=== PATIENT | female | born 1990 | race Caucasian/White ===

== ENCOUNTER 2018-05-26 13:00 | Outpatient (CLI) | payer MEDICAID ==
--- NOTE | 2018-05-26 17:39 | ULT ---
ULTRASOUND OBSTETRICAL COMPLETE: DATE: 05/26/18. HISTORY: A 27-year-old female with no care. Z34.90, normal . FINDINGS: number: Reina. lie: Vertex. Maternal cervix: Obscured. Placenta: Anterior. No placenta previa. Amniotic fluid volume: BLAZE = 10 cm. heart rate: 130 b.p.m. The following anatomy is visualized, with no evidence of anomalies: Head, cerebellum, cisterna magna, 4-chamber heart, stomach, kidneys, bladder, spine, upper extremitie s, lower extremities, and 3-vessel cord. The lateral ventricles, cord insertion, and nose and lips, are not well visualized. biometry: Head circumference (HC): 26.8 cm 29 w 2 d Biparietal diameter (BPD): 7.5 cm 29 w 6 d Abdominal circumference (AC): 24.2 cm 28 w 3 d Femur length (FL): 5.6 cm 29 w 4 d Average ultrasound age (AUA): 29 w 2 d Estimated date of delivery (SAJI): 08/10/2018. Last menstrual period (LMP): 11/24/2017. Gestational age by LMP: 26 w 1 d. Estimated weight (EFW): 1,316 g +/- 195 g (2 lb, 14 oz +/- 7 oz). IMPRESSION: 1. Live 3rd trimester intrauterine gestation. 2. Estimated gestational age of 29 weeks, 1 day. 3. Cephalic lie. IAN [place] POS: [facility]
== END 2018-05-26 13:01 | disposition home or self-care (01) ==
LOC: SCSULT 13:00
PROVIDERS: ATTEND Family Medicine
DX: Z34.93 Encounter for supervision of normal pregnancy, unspecified, third trimester (principal); Z3A.29 29 weeks gestation of pregnancy
CPT/HCPCS: 36415; 76805; 82950; 84443; 85025; 86762; 86780; 86850; 86900; 86901; 87340; 87389; 87480; 87491; 87510; 87591; 87660; 88142; G0123

== ENCOUNTER 2018-08-03 05:30 | Inpatient (IN) | payer OTHER ==
[2018-08-03] MEDS ORDERED: Methylergonovine 0.2 MG/ML VIAL IM PRN (08:18)
[2018-08-03] MEDS ORDERED: NS / Oxytocin 40 units/1000ml 1,000 ML IV PRN (08:18)
[2018-08-03] MEDS ORDERED: Misoprostol 200 MCG TAB PR PRN (08:18)
[2018-08-03] MEDS ORDERED: Meperidine HCl/PF 25 MG/ML VIAL IM/IV PRN (08:18)
[2018-08-03] MEDS ORDERED: Ibuprofen 800 MG TAB PO PRN (08:18)
[2018-08-03] MEDS ORDERED: Butorphanol Tartrate 1 MG/ML VIAL SLOW IVP PRN (08:18)
[2018-08-03] MEDS ORDERED: Lidocaine 1% (PF) 30 ML VIAL SC PRN (08:18)
[2018-08-03] MEDS ORDERED: HYDROcodone/Acetaminophen 5/325 mg Tablet PO PRN (08:18)
[2018-08-03] MEDS ORDERED: Promethazine HCl 25 MG/ML VIAL IM PRN ×2 (08:18→13:40)
[2018-08-03] MEDS ORDERED: Carboprost 250 MCG/ML AMP IM PRN (08:18)
[2018-08-03] MEDS ORDERED: Ondansetron PF 4 MG/2 ML Vial IVP PRN ×2 (08:18→13:40)
[2018-08-03] MEDS ORDERED: Acetaminophen 500 MG TAB PO PRN (08:18)
[2018-08-03] MEDS: Lactated Ringer's 1,000 ML IV PRN ×3 (08:20→15:45)
[2018-08-03] MEDS ORDERED: NS w/ Oxytocin 10 units 500 ML IV SCH (08:30)
[2018-08-03 08:59] LABS: Hemoglobin 9.6 g/dL (12.0-16.0); Mean Corpuscular HGB CONC 32.5 g/dL (32.0-36.0); Mean Corpuscular Hemoglobin 25.8 pg (27.0-31.0); Mean Corpuscular Volume 79.6 fL (78.0-98.0); Mean Platelet Volume 9.2 fL (7.4-10.4); Platelet Count 186 thou/uL (130-400); RBC Distribution Width 13.1 % (11.5-14.5); White Blood Cell (WBC) Count 7.4 thou/uL (4.8-10.8)
[2018-08-03 09:19] VITALS: BMI 33.8
[2018-08-03 09:25] LABS: HBSAg Index 0.21 S/CO (0-0.99); Hep B Surf Ag Non-Reactive S/CO (NonReactive); Syphilis Antibody Nonreactive (Nonreactive); Syphilis Antibody Index 0.03 S/CO (<1.00 Non-Reactive)
[2018-08-03] MEDS ORDERED: NS w/ Oxytocin 10 units 500 ML ONE (09:28)
[2018-08-03 10:34] LABS: Amphetamine Not Detected (NotDetected); Barbiturates Screen Not Detected (NotDetected); Benzodiazepine Screen Not Detected (NotDetected); Cocaine Metabolite Screen Not Detected (NotDetected); Medtox Control Line Valid? VALID (VALID); Medtox Reader # READER 4; Methadone Not Detected (NotDetected); Methamphetamine Not Detected (NotDetected); Opiate Screen Not Detected (NotDetected); Oxycodone Screen Not Detected (NotDetected); Phencyclidine (PCP) Not Detected (NotDetected); THC/Cannabinoid Screen Not Detected (NotDetected); Tricyclic Screen Not Detected (NotDetected)
[2018-08-03] MEDS ORDERED: Dextrose 5%-Lactated Ringers 1,000 ML IV PRN (10:36)
[2018-08-03] MEDS ORDERED: CEFAZOLIN 2 GM/50 ML BAG ONE (12:27)
[2018-08-03] MEDS ORDERED: CEFAZOLIN 2 GM/50 ML BAG IVPB SCH (12:30)
[2018-08-03] MEDS ORDERED: Bicitra 30 ML UDCUP PO SCH (12:30)
[2018-08-03] MEDS ORDERED: Morphine PF 1 MG/ML SYR ONE (12:47)
[2018-08-03] MEDS ORDERED: Oxytocin 10 UNITS/ML VIAL ONE (12:48)
[2018-08-03] MEDS ORDERED: ePHEDrine/0.9% NaCl/PF SYRINGE 50 mg/10 ml ONE (12:48)
[2018-08-03] MEDS ORDERED: Ondansetron PF 4 MG/2 ML Vial ONE ×2 (12:48→14:12)
[2018-08-03] MEDS ORDERED: Azithromycin 500 MG in Sodium Chloride 0.9% 250 ML 250 ML IVPB SCH (13:00)
[2018-08-03] MEDS ORDERED: PHENYLEPHRINE-NS 100 MCG/ML 10 ML SYRINGE ONE (13:17)
--- NOTE | 2018-08-03 13:24 | ULT ---
ULTRASOUND BIOPHYSICAL PROFILE: Date: 08/03/18 HISTORY: 27-year-old female in third trimester of gestation with nonreactive non-stress test. FINDINGS: breathin tone: 2 movement: 2 Amniotic fluid volume: 2 lie: Cephalic. BLAZE: 10.5 cm heart rate: 121 bpm IMPRESSION: Normal biophysical profile score of 8/8, excluding the non-stress test. jn [] POS: [facility]
[2018-08-03] MEDS ORDERED: L&D-Morphine 4 MG/ML VIAL SLOW IVP PRN (13:40)
[2018-08-03] MEDS ORDERED: Meperidine HCl/PF 25 MG/ML VIAL SLOW IVP PRN (13:40)
[2018-08-03] MEDS ORDERED: Naloxone HCl 0.4 mg/ml Vial IVP PRN ×2 (13:40)
[2018-08-03] MEDS ORDERED: Promethazine HCl 25 MG SUPP PR PRN (13:40)
[2018-08-03] MEDS ORDERED: Ondansetron HCl/PF 4 MG/2 ML Vial IVP PRN (13:40)
[2018-08-03] MEDS ORDERED: HYDROmorphone 2 MG/ML VIAL SLOW IVP PRN (13:40)
[2018-08-03] MEDS ORDERED: diphenhydrAMINE 50 MG/ML VIAL IVP PRN (13:40)
[2018-08-03] MEDS ORDERED: Eucerin (Mineral Oil/Petrolatum,White) 30 gm Jar TOP PRN (13:40)
[2018-08-03] MEDS ORDERED: Naloxone HCl 0.4 mg/ml Vial IV PRN (13:40)
[2018-08-03] MEDS ORDERED: Communication Order-Pharmacy FS SCH (13:45)
[2018-08-03] MEDS ORDERED: Ketorolac Tromethamine 30 MG/ML VIAL IVP SCH (13:45)
[2018-08-03] MEDS ORDERED: Ketorolac Tromethamine 30 MG/ML VIAL ONE (14:38)
[2018-08-03] MEDS ORDERED: Meperidine HCl/PF 25 MG/ML VIAL ONE (15:08)
[2018-08-03 15:41] LABS: Actual Bicarbonate (HCO3a) 27.7 mEq/L (22-28); Analyzer IN Cardio OR; Base Excess (BEa) -1.9 mEq/L (-2.0 to +3.0)
[2018-08-03] MEDS ORDERED: Lanolin Ointment 7 GM TUBE TOP PRN (16:27)
[2018-08-03] MEDS ORDERED: Adacel (T-DAP) 0.5 ML SYRINGE IM ONE (16:27)
--- NOTE | 2018-08-03 16:40 | HP ---
HISTORY OF PRESENT ILLNESS: This is a 27-year-old white female with G4, P3 at 40 weeks and 3 days. The patient was admitted for an elective induction. However, throughout the night, the baby had minimal variability. She has remained at approximately 2 cm. She has been layla every 2 to 3 minutes mildly. The patient's membranes were also ruptured approximately 30 minutes ago and the baby's status has been unchanged. Cervix remains at 2 to 3 cm 50% high with minimal variability. PAST MEDICAL HISTORY: Unremarkable. PAST SURGICAL HISTORY: Spontaneous vaginal deliveries x3. MEDICATIONS: vitamins and iron. ALLERGIES: NONE. FAMILY HISTORY: Unremarkable. SOCIAL HISTORY: She is a single mother with 3 children. Father of the baby is present. She does not smoke, does not drink. REVIEW OF SYSTEMS: As above. PHYSICAL EXAMINATION: VITAL SIGNS: Stable, afebrile. HEART: Regular rate and rhythm without murmur. LUNGS: Clear. ABDOMEN: Soft, gravid. Contractions every 2 to 3 minutes, mild. Cervix 2 to 3 cm 50% high. clear. EXTREMITIES: No edema. LABORATORY DATA: One-hour GCT normal. Hepatitis B negative. HIV negative. UA negative. Rubella immune, GBS negative. RPR negative. Thyroid normal. O+ blood type. H and H 9.6 and 29.4. ASSESSMENT: 1. Non-reassuring heart racing. 2. A 40-week and 3-day intrauterine . 3. Three prior normal vaginal deliveries. 4. Anemia. PLAN: 1. Routine L and D orders. 2. Routine preop orders. 3. Ancef and Zithromax IV. 4. Discussed the situation with mother and with grandmother. Job ID: [id number]
[2018-08-03] MEDS ORDERED: Morphine 2 MG/ML SYRINGE SLOW IVP PRN (18:39)
[2018-08-03] MEDS: Ketorolac Tromethamine 30 MG/ML VIAL IVP PRN (22:48)
[2018-08-04] MEDS ORDERED: Butorphanol Tartrate 1 MG/ML VIAL SLOW IVP PRN (01:45)
[2018-08-04] MEDS ORDERED: HYDROcodone/Acetaminophen 5/325 mg Tablet PO PRN (01:45)
[2018-08-04] MEDS: Ketorolac Tromethamine 30 MG/ML VIAL IVP PRN (05:42)
[2018-08-04 06:24] LABS: Hemoglobin 8.1 g/dL (12.0-16.0); Mean Corpuscular HGB CONC 31.9 g/dL (32.0-36.0); Mean Corpuscular Hemoglobin 25.6 pg (27.0-31.0); Mean Corpuscular Volume 80.3 fL (78.0-98.0); Mean Platelet Volume 9.2 fL (7.4-10.4); Platelet Count 145 thou/uL (130-400); RBC Distribution Width 13.1 % (11.5-14.5); Red Blood Cell (RBC) Count 3.15 mill/uL (4.20-5.40); White Blood Cell (WBC) Count 8.4 thou/uL (4.8-10.8)
--- NOTE | 2018-08-04 07:35 | OP ---
DATE OF PROCEDURE: 08/03/2018 PREOPERATIVE DIAGNOSES: 1. Term . 2. Non-reassuring heart tracings. POSTOPERATIVE DIAGNOSES: 1. Term . 2. Non-reassuring heart tracings. 3. Possible occult cord. PROCEDURE PERFORMED: Primary low-transverse section. ANESTHESIA: Spinal. ASSISTANTS: 1. Dr. Abena Fernandez. 2. Dr. Genet Wen. ESTIMATED BLOOD LOSS: Approximately 700 mL. DESCRIPTION OF PROCEDURE: This is a 27-year-old white female G4, P3, taken to the operating room, placed in the supine position. Abdomen was prepped and draped sterilely. A Pfannenstiel incision was made. Subcu was dissected down to the fascia. The fascia was opened without incident. The peritoneum was opened by blunt dissection. Bladder flap was dissected inferiorly. A low-transverse uterine incision was made. Fluid was noted to be clear. Delivered the baby with use of a vacuum vertex presentation. The patient did cry upon delivery. Cord gases were obtained. Cord was clamped. [facility]ady team was was present. I closed the uterus in one layer with #1 Monocryl. The abdomen was evacuated of all clots. Hemostasis was adequate. The peritoneum was closed with 2-0 chromic, the fascia with 0 Vicryl and the skin was closed with yee. The mother and baby did well. Job ID: [id number]
[2018-08-04] MEDS: Prenatal Vitamin 1 TAB PO SCH (09:06)
--- NOTE | 2018-08-04 15:30 | PDOC.PP ---
Post Progress Note Post Day #: 1 Subjective: me pain but manageable with medication, baby still in NICU PO intake tolerated: yes Flatus: yes Ambulation: yes Vital Signs (12 hours) Temp Pulse Resp BP Pulse Ox 08/04/18 14:58 98.2 F 80 12 95/51 L 97 08/04/18 08:00 98.1 F 83 20 92/50 L 97 08/04/18 07:45 97 08/04/18 04:30 98.3 F 82 16 98/51 L Weight Weight 185 lb - Physical Examination General: NAD Cardiovascular: no m/r/g, RRR Respiratory: clear to auscultation bilaterally, non-labored breathing Abdominal: + bowel sounds, lochia, no distention, appropriately TTP Skin: CS incision dry & intact, no rash Result Diagrams: 08/04/18 05:50 Additional Labs: Post Labs Blood Type O POSITIVE 08/03/18 08:31 Hep Bs Antigen Non-Reactive S/CO (NonReactive) 08/03/18 08:31 (1) delivery, delivered, current hospitalization Code(s): O82 - ENCOUNTER FOR DELIVERY WITHOUT INDICATION Status: Acute - Assessment/Plan Routine post-op care Ambulate Start breast pump for baby in NICU Home in 1-2 days
[2018-08-04] MEDS: HYDROcodone/Acetaminophen 5/325 mg Tablet PO PRN ×2 (16:20→21:09)
[2018-08-05] MEDS: HYDROcodone/Acetaminophen 5/325 mg Tablet PO PRN ×4 (05:31→18:36)
[2018-08-05] MEDS: Prenatal Vitamin 1 TAB PO SCH (09:59)
--- NOTE | 2018-08-05 13:02 | PDOC.PP ---
Post Progress Note Post Day #: 2 Subjective: No c/o. Pumping with good colostrum. PO intake tolerated: yes Flatus: yes Ambulation: yes Vital Signs (12 hours) Temp Pulse Resp BP Pulse Ox 08/05/18 12:02 99.2 F 101 H 20 110/61 08/05/18 08:20 98 08/05/18 07:51 98.8 F 73 20 103/56 L 98 08/05/18 05:20 99.0 F 80 16 103/54 L Weight Weight 185 lb - Physical Examination General: NAD Cardiovascular: no m/r/g, RRR Respiratory: clear to auscultation bilaterally, non-labored breathing Abdominal: + bowel sounds, lochia, no distention, appropriately TTP Skin: CS incision dry & intact, no rash Result Diagrams: 08/04/18 05:50 Additional Labs: Post Labs Blood Type O POSITIVE 08/03/18 08:31 Hep Bs Antigen Non-Reactive S/CO (NonReactive) 08/03/18 08:31 (1) delivery, delivered, current hospitalization Code(s): O82 - ENCOUNTER FOR DELIVERY WITHOUT INDICATION Status: Acute - Assessment/Plan No c/o. Work on breast pumping. Baby still in NICU.
[2018-08-05] MEDS: Ibuprofen 800 MG TAB PO PRN (14:12)
[2018-08-05] MEDS: Ferrous Sulfate 325 MG TAB PO SCH (16:59)
[2018-08-06 08:09] VITALS: BP 100/55; TEMP 98
[2018-08-06] MEDS: Prenatal Vitamin 1 TAB PO SCH (08:16)
[2018-08-06] MEDS: HYDROcodone/Acetaminophen 5/325 mg Tablet PO PRN (08:16)
[2018-08-06] MEDS: Ibuprofen 800 MG TAB PO PRN (08:16)
[2018-08-06] MEDS: Ferrous Sulfate 325 MG TAB PO SCH (08:16)
--- NOTE | 2018-08-06 11:37 | PDOC.PP ---
Post Progress Note Post Day #: 3 Subjective: No c/o. Ready to go home. Baby still in NICU. PO intake tolerated: yes Flatus: yes Ambulation: yes Vital Signs (12 hours) Temp Pulse Resp BP Pulse Ox 08/06/18 08:08 98.0 F 69 20 100/55 L 97 Weight Weight 185 lb - Physical Examination General: NAD Cardiovascular: no m/r/g, RRR Respiratory: clear to auscultation bilaterally, non-labored breathing Abdominal: + bowel sounds, lochia, no distention, appropriately TTP Skin: CS incision dry & intact, no rash Result Diagrams: 08/04/18 05:50 Additional Labs: Post Labs Blood Type O POSITIVE 08/03/18 08:31 Hep Bs Antigen Non-Reactive S/CO (NonReactive) 08/03/18 08:31 (1) delivery, delivered, current hospitalization Code(s): O82 - ENCOUNTER FOR DELIVERY WITHOUT INDICATION Status: Acute - Assessment/Plan Routine care D/C yee D/C home F/U in 2 weeks with me
== END 2018-08-06 11:55 | disposition home or self-care (01) | DRG 788 ==
LOC: L&D 08:45 → 3SW 16:46
PROVIDERS: ADMIT Family Medicine; ATTEND Family Medicine
PROC: 10D00Z1 Extraction of Products of Conception, Low, Open Approach (ICD-10-PCS; principal; 2018-08-03)
PROC: 3E033VJ Introduction of Other Hormone into Peripheral Vein, Percutaneous Approach (ICD-10-PCS; 2018-08-03)
DX: O76 Abnormality in fetal heart rate and rhythm complicating labor and delivery (principal); Z3A.40 40 weeks gestation of pregnancy; Z37.0 Single live birth; O99.02 Anemia complicating childbirth; D64.9 Anemia, unspecified
CPT/HCPCS: 36415; 51702; 76819; 80306; 82805; 85027; 86780; 86850; 86900; 86901; 87340; 88307; J0456; J1885; J2175; J2270; J2274; J2405; J2590; J7050

== ENCOUNTER 2019-01-31 01:58 | Emergency (ER) | payer OTHER, SELFPAY ==
[2019-01-31 02:48] LABS: #Basophils 0.1 thou/uL (0.0-0.2); #Eosinphils 0.4 thou/uL (0.0-0.7); #Lymphocytes 2.6 thou/uL (1.20-3.40); #Monocytes 0.5 thou/uL (0.11-0.59); #Neutrophils 4.1 thou/uL (1.40-6.50); %Basophils 0.7 % (0.0-1.0); %Lymphocytes 33.9 % (21.0-51.0); %Monocytes 6.9 % (0.0-10.0); %Neutrophils 53.6 % (42.0-75.0); Mean Corpuscular HGB CONC 32.1 g/dL (32.0-36.0); Mean Corpuscular Hemoglobin 26.6 pg (27.0-31.0); Mean Corpuscular Volume 82.8 fL (78.0-98.0); Mean Platelet Volume 8.3 fL (7.4-10.4); Platelet Count 285 thou/uL (130-400); RBC Distribution Width 14.8 % (11.5-14.5); Red Blood Cell (RBC) Count 4.49 mill/uL (4.20-5.40); White Blood Cell (WBC) Count 7.7 thou/uL (4.8-10.8)
[2019-01-31 03:13] LABS: ALT (SGPT) 11 U/L (8-55); AST (SGOT) 13 U/L (5-34); Acetaminophen Less than 6.0 mcg/mL (10.0-30.0); Albumin 4.4 g/dL (3.5-5.0); Alcohol Less than 10 mg/dL (Less than 10); Alkaline Phosphatase 66 U/L (40-150); Anion Gap 14 mmol/L (10-20); BUN (Urea Nitrogen) 8 mg/dL (7.0-18.7); Bilirubin, Total 0.6 mg/dL (0.2-1.2); Calc. Creatinine Clearance 0 mL/min (70-130); Calcium 9.8 mg/dL (7.8-10.44); Carbon Dioxide 24 mmol/L (22-29); Chloride 106 mmol/L (98-107); Estimated GFR-MDRD 78; Globulin 2.9 g/dL (2.4-3.5); Glucose 84 mg/dL (70-105); Potassium 3.6 mmol/L (3.5-5.1); Protein, Total 7.3 g/dL (6.0-8.3); Salicylate Less than 8.0 mg/dL (15.0-30.0); Sodium 140 mmol/L (136-145)
[2019-01-31] MEDS ORDERED: hydrOXYzine 25 MG TAB ONE (03:36)
[2019-01-31 03:51] LABS: Bilirubin Small (Negative); Blood, Urine Negative (Negative); Clarity TURBID (Clear); Glucose, Urine (Dipstick) Negative (Negative); Leukocyte Small (Negative); Nitrite Negative (Negative); Protein, Urine (Dipstick) 30 mg/dL (Neg-Trace); Specific Gravity, Urine 1.036 (1.002-1.036); Urobilinogen 0.2 mg/dL (0.2-1.0); pH, Urine 5.5 (5.0-9.0)
[2019-01-31 03:54] LABS: Bacteria/HPF 1+ HPF (None Seen); RBC/HPF 0-3 HPF (0-3)
[2019-01-31 04:02] LABS: Pathc Cast-AUWi Flag 36.81 (0-2.49); Yeast-AUWi Flag 25.7 (0-25.0)
[2019-01-31 04:15] LABS: Hyaline Casts/LPF NONE SEEN LPF (0-3 Hyaline); Other Casts/LPF None Seen LPF (0-3 Hyaline); Yeast-All Forms None Seen HPF (None Seen)
[2019-01-31 04:20] LABS: Medtox Reader # READER 4
[2019-01-31 04:21] LABS: Amphetamine Detected (NotDetected); Barbiturates Screen Not Detected (NotDetected); Benzodiazepine Screen Not Detected (NotDetected); Cocaine Metabolite Screen Not Detected (NotDetected); Medtox Control Line Valid? VALID (VALID); Methadone Not Detected (NotDetected); Methamphetamine Detected (NotDetected); Opiate Screen Not Detected (NotDetected); Oxycodone Screen Not Detected (NotDetected); Phencyclidine (PCP) Not Detected (NotDetected); THC/Cannabinoid Screen Not Detected (NotDetected); Tricyclic Screen Not Detected (NotDetected)
[2019-02-03 00:02] LABS: Chlamydia by PCR Not Detected (NotDetected); GC by PCR Not Detected (NotDetected)
== END 2019-01-31 04:25 | disposition home or self-care (01) ==
LOC: ERS 01:58
DX: J06.9 Acute upper respiratory infection, unspecified (principal); F43.0 Acute stress reaction; N73.9 Female pelvic inflammatory disease, unspecified; F17.210 Nicotine dependence, cigarettes, uncomplicated
CPT/HCPCS: 36415; 80053; 80306; 80307; 81003; 81015; 85025; 87480; 87491; 87510; 87591; 87660; 99284